=== PATIENT | female | born 1960 | race Two or more races ===

== ENCOUNTER 2020-12-25 11:13 | Emergency (ER) | payer MEDICAID, OTHER ==
[~2020-12-25] VITALS: Ht 165.1 cm; Wt 127.0 kg
[2020-12-25 13:49] VITALS: BP 152/74
== END 2020-12-25 14:14 | disposition home or self-care (01) ==
LOC: ER 11:13
DX: L97.519 Non-pressure chronic ulcer of other part of right foot with unspecified severity (principal); Z88.1 Allergy status to other antibiotic agents; Z48.01 Encounter for change or removal of surgical wound dressing